=== PATIENT | female | born 1935 | race Caucasian/White ===

== ENCOUNTER 2016-03-22 08:24 | Day surgery (SDC) | payer OTHER ==
[~2016-03-22] VITALS: Ht 160 cm; Wt 67.1 kg
[~2016-03-22 08:24] MED LIST: AMLODIPINE BESYL5 MG PO; ATORVASTATIN CA40 MG PO; CRESTOR40 MG PO; FLUCONAZOLE100 MG PO; GABAPENTIN300 MG PO; GABAPENTIN600 MG PO; LIDOCAINE700 MG TD; LISINOPRIL20 MG PO; METOPROLOL TART50 MG PO; OXYCODONE HCL5 MG PO; OXYCODONE-ACET1 EACH PO; PROBIOTIC1 EAC3 PO; PROMETHAZINE HC25 M1 PO; TAGAMET HB200 M2 PO; TIZANIDINE HCL4 M1 PO; TRAMADOL HCL50 MG PO; VALACYCLOVIR1000 MG PO; VITAMIN D32000 UNI1 PO
[2016-03-22] MEDS ORDERED: IBUPROFEN600 MG PO (09:31)
== END 2016-03-22 11:55 | disposition home or self-care (01) ==
LOC: PAIN 08:24 → SDC 09:00 → PAIN 11:55
PROC: 3E0S33Z Introduction of Anti-inflammatory into Epidural Space, Percutaneous Approach (ICD-10-PCS; principal; 2016-03-22)
DX: M54.16 Radiculopathy, lumbar region (principal); M99.83 Other biomechanical lesions of lumbar region; R20.2 Paresthesia of skin; F41.1 Generalized anxiety disorder; E78.5 Hyperlipidemia, unspecified; R01.1 Cardiac murmur, unspecified; I10 Essential (primary) hypertension
CPT/HCPCS: J1030; J2405; J3010